=== PATIENT | female | born 1975 | race Caucasian/White ===

== ENCOUNTER → 2018-07-15 | Outpatient (CLI) | payer MEDICAID | LOC: BRMIMAGING 15:53 | PROVIDERS: ATTEND Physician Assistant | DX: J40 Bronchitis, not specified as acute or chronic (principal); M16.0 Bilateral primary osteoarthritis of hip; M25.859 Other specified joint disorders, unspecified hip; F17.200 Nicotine dependence, unspecified, uncomplicated | CPT/HCPCS: 71046-PO; 73502-PO ==

== ENCOUNTER → 2018-07-27 | Outpatient (CLI) | payer MEDICAID | LOC: BRMIMAGING 12:33 | PROVIDERS: ATTEND Physician Assistant | DX: Z12.31 Encounter for screening mammogram for malignant neoplasm of breast (principal) ==

== ENCOUNTER → 2018-12-14 | Outpatient (CLI) | payer MEDICAID | LOC: BRMIMAGING 14:05 ==